=== PATIENT | male | born 1980 | race Caucasian/White ===

== ENCOUNTER 2019-10-10 00:35 | Emergency (ER) | payer OTHER ==
--- NOTE | 2019-10-10 00:46 | PDOC ---
History of Present Illness - General Chief Complaint: Chest Pain Stated Complaint: chest tightness Time Seen by Provider: 10/10/19 00:45 - History of Present Illness Initial Comments: HPI: 39yo M with PMH of anxiety and substance use (opioids, last used three years ago ) brought in by EMS for episode of lightheadedness and palpitations. Patient reports that about a half hour prior to arrival, he went to the store and was walking home when he felt sudden-onset lightheadedness such that he felt like he might almost pass out. He felt his heart racing and went into the store to ask someone to call [employer]. As he was in the ambulance headed to the hospital, he began to feel better and is now at his baseline. Denies thoughts of anxiety. Has had panic attacks previously, but this did not feel quite like one. No chest pain or shortness of breath. Has had normal po intake today. Denies fever or chills. ROS: Constitutional: no fever, no chills HEENT: no throat pain, no dysphagia Cardiovascular: no chest pain, +palpitations Respiratory: no cough, no shortness of breath Gastrointestinal: no abdominal pain, no nausea Genitourinary: no dysuria, no hematuria Musculoskeletal: no myalgia, no arthralgia Skin: no rash, no itching Neurologic: no headache, +lightheaded PE: General: Awake, alert, and fully oriented, in no acute distress Head: No signs of trauma Eyes: EOMI, sclera anicteric ENT: Moist mucus membranes Neck: Normal ROM, supple Lungs: Lungs clear, Normal breath sounds Cardio: Regular rhythm, S1 and S2 present Abdomen: Soft, nontender Extremities: Normal range of motion, Distal pulses present SKIN: Warm, Dry, normal turgor Neurologic: Cranial nerves II through XII intact. Normal speech, sensation, strength, coordination, and gait. ED Course/MDM: DDX including but not limited to metabolic derangement, anemia, ACS, vasovagal, pre-syncope Labs, EKG, CXR EKG: rate 80, QTc 456, NSR, incomplete RBBB (no previous EKGs available) 10/10/19 00:46 Patient signed out to Dr. Irby and night team. 10/10/19 01:26 Past History - Past Medical History Allergies/Adverse Reactions: Allergies Allergy/AdvReac Type Severity Reaction Status Date / Time No Known Allergies Allergy Verified 10/10/19 00:41 Home Medications: Ambulatory Orders NK [No Known Home Medication] 10/10/19 - Psycho Social/Smoking Cessation Hx Smoking History: Unknown if ever smoked Have you smoked in the past 12 months: No Information on smoking cessation initiated: No Hx Alcohol Use: Yes Drug/Substance Use Hx: Yes *Physical Exam - Vital Signs Last Vital Signs Temp Pulse Resp BP Pulse Ox 98.2 F 85 20 134/85 99 10/10/19 00:39 10/10/19 00:39 10/10/19 00:39 10/10/19 00:39 10/10/19 00:39 ED Treatment Course - LABORATORY CBC & Chemistry Diagram: 10/10/19 01:15 10/10/19 01:15 Discharge - Discharge Information Problems reviewed: Yes Clinical Impression/Diagnosis: Palpitations Condition: Stable Disposition: HOME - Follow up/Referral Referrals: Addison Jordan MD [Primary Care Provider] - - Patient Discharge Instructions Patient Printed Discharge Instructions: DI for Palpitations Additional Instructions: You came into the emergency department for lightheadedness and a racing heart. Blood work, EKG, and Xray were within normal limits. Eat and hydrate throughout the day to prevent dehydration and low blood sugar levels. Follow-up with you primary care physician this week to discuss this ED visit and to further evaluate your symptoms. Your care is not complete until you do so. Call and make an appointment. Immediate medical attention is required if: you pass out, have any chest pain, shortness of breath, severe headaches, changes in vision, focal numbness or weakness, any severe abdominal pain, any black tarry stool, or any new or concerning symptoms. If you think you are having an emergency, call for emergency medical services or present to the emergency department right away. - Post Discharge Activity Work/Back to School Note: Back to Work
[2019-10-10 01:11] VITALS: BP 134/85; PULSE 85; TEMP 98.2; BMI 23.7
--- NOTE | 2019-10-10 01:21 | PDOC ---
*Physical Exam - Vital Signs Last Vital Signs Temp Pulse Resp BP Pulse Ox 98.2 F 85 20 134/85 99 10/10/19 00:39 10/10/19 00:39 10/10/19 00:39 10/10/19 00:39 10/10/19 00:39 - Physical Exam 10/10/19 01:18 General Appearance: Nourished. No Apparent Distress HEENT: No Pharyngeal Erythema, Tonsillar Exudate, Tonsillar Erythema Neck: No Cervical Lymphadenopathy Respiratory/Chest: Lungs Clear, Normal Breath Sounds. No Crackles, Rales, Rhonchi, Wheezing Cardiovascular: Regular Rhythm, Regular Rate. No Murmur, Gallops, Rubs Gastrointestinal/Abdominal: Normal Bowel Sounds, Soft. No Guarding, Rebound, Tenderness Musculoskeletal: No CVA Tenderness Extremity: Normal Capillary Refill Integumentary: Normal Color, Dry, Warm Neurologic: Fully Oriented, Alert, Normal Mood/Affect, Normal Response, ED Treatment Course - LABORATORY CBC & Chemistry Diagram: 10/10/19 01:15 10/10/19 01:15 ED Progress Note - Progress Note Progress Note: 10/10/19 01:18 The patient is a 39 year old male with a history of anxiety and substance abuse( last use 3 years ago) who presents for evaluation of palpitations and lightheadedness. The patient reports that he was at the store when he began experiencing lightheadedness and palpations prompting his presentation to the ED for further evaluation. The patient states that he is currently asymptomatic and has returned to baseline. He is pending lab, cxr, ekg to evaluate further. Medical Decision Making - Medical Decision Making 10/10/19 03:14 CBC, cmp, troponin were unremarkable. Chest plain film does not demonstrate any acute process as preliminarily read by ED physician pending official radiology review. We are comfortable discharging the patient home in stable condition. Patient and family made aware of impression and plan, return precautions discussed including but not limited to worsening pain or symptoms, fevers, or signs of infection, chest pain, respiratory distress, inability to tolerate oral intake, dehydration, syncope, or neurologic changes. The patient is to follow up with PMD as recommended within 1 week, follow up information provided and the patient will call for an appointment. The patient is to take medications as instructed for duration of time and continue with supportive care , avoid triggers and precipitants. Patient is safe for outpatient follow-up. Discharge - Discharge Information Problems reviewed: Yes Clinical Impression/Diagnosis: Palpitations Condition: Stable Disposition: HOME - Follow up/Referral Referrals: Addison Jordan MD [Primary Care Provider] - - Patient Discharge Instructions Patient Printed Discharge Instructions: DI for Palpitations Additional Instructions: You came into the emergency department for lightheadedness and a racing heart. Blood work, EKG, and Xray were within normal limits. Eat and hydrate throughout the day to prevent dehydration and low blood sugar levels. Follow-up with you primary care physician this week to discuss this ED visit and to further evaluate your symptoms. Your care is not complete until you do so. Call and make an appointment. Immediate medical attention is required if: you pass out, have any chest pain, shortness of breath, severe headaches, changes in vision, focal numbness or weakness, any severe abdominal pain, any black tarry stool, or any new or concerning symptoms. If you think you are having an emergency, call for emergency medical services or present to the emergency department right away. - Post Discharge Activity Work/Back to School Note: Back to Work
[2019-10-10 01:32] LABS: BASO % 0.4 % (0-2.0); EOS % 0.9 % (0-4.5); HEMOGLOBIN 13.6 GM/dL (11.7-16.9); LYMPH % 29.6 % (8-40); MCH 31.5 pg (25.7-33.7); MCHC 33.9 g/dl (32.0-35.9); MEAN CELL VOLUME 92.7 fl (80-96); MEAN PLT VOLUME 7.9 fl (7.5-11.1); MONO % 7.7 % (3.8-10.2); NEUT % 61.4 % (42.8-82.8); PLATELET COUNT 201 K/MM3 (134-434); RBC 4.32 M/mm3 (4.00-5.60)
[2019-10-10 01:59] LABS: BILIRUBIN,TOTAL 0.4 mg/dL (0.2-1); BLOOD UREA NITROGEN 33.7 mg/dL (7-18); CALCIUM 8.6 mg/dL (8.5-10.1); CREATININE 0.7 mg/dL (0.55-1.3); POTASSIUM 3.8 mmol/L (3.5-5.1); TOT PROT 6.4 g/dl (6.4-8.2)
--- NOTE | 2019-10-10 02:23 | PDOC ---
Attending Attestation - Resident Resident Name: Rekha Perez - ED Attending Attestation I have performed the following: I have examined & evaluated the patient, The case was reviewed & discussed with the resident, I agree w/resident's findings & plan, Exceptions are as noted - HPI HPI: 10/10/19 02:17 39 M with h/o anxiety, substance abuse, presenting to ED with lightheadedness and palpitations. Pt states that he was walking home from a store when he suddenly felt lightheaded. Pt notes that he felt like he was going to faint but did not have LOC. Pt also reports feeling his heart racing. Denies CP/SOB. Pt has had panic attacks in the past. Pt denies F/C. Denies leg swelling. Denies any recent drug use. Pt states that his symptoms have improved since arriving to ED, and he currently has no complaints. - Physicial Exam PE: 10/10/19 02:22 "GENERAL: Awake, alert, and fully oriented, in no acute distress. HEAD: No signs of trauma EYES: PERRLA, EOMI, sclera anicteric, conjunctiva clear ENT: Auricles normal inspection, hearing grossly normal, nares patent, oropharynx clear without exudates. Moist mucosa NECK: Nontender, no stepoffs, Normal ROM, supple, no lymphadenopathy, JVD, or masses LUNGS: Breath sounds equal, clear to auscultation bilaterally. No wheezes, and no crackles HEART: Regular rate and rhythm, normal S1 and S2, no murmurs, rubs or gallops ABDOMEN: Soft, nontender, normoactive bowel sounds. No guarding, no rebound. No masses EXTREMITIES: Normal range of motion, no edema. No clubbing or cyanosis. No cords, erythema, or tenderness NEUROLOGICAL: Cranial nerves II through XII intact. 5/5 strength and sensation in all extremities, Normal speech, normal gait, normal cerebellar function SKIN: Warm, Dry, normal turgor, no rashes or lesions noted. - Medical Decision Making 10/10/19 02:23 39 M with palpitations and lightheadedness, now resolved. EKG with no arrhythmia. Vitals wnl. Pt with normal exam. - Labs - CXR 10/10/19 03:15 Labs wnl CXR clear on my read Pt reassessed - continues to be asymptomatic. Pt is well appearing, with normal vitals. Clinically stable for DC at this time. I discussed the physical exam findings, ancillary test results and final diagnoses with the patient. I answered all of the patient's questions. The patient was satisfied with the care received and felt comfortable with the discharge plan and treatment plan. The patient agrees to follow up with the primary care physician within 24-72 hours.
--- NOTE | 2019-10-11 10:42 | EKG ---
Test Reason : Blood Pressure : / mmHG Vent. Rate : 080 BPM Atrial Rate : 080 BPM P-R Int : 148 ms QRS Dur : 104 ms QT Int : 396 ms P-R-T Axes : 067 058 061 degrees QTc Int : 456 ms NORMAL SINUS RHYTHM INCOMPLETE RIGHT BUNDLE BRANCH BLOCK BORDERLINE ECG NO PREVIOUS ECGS AVAILABLE Confirmed by JHONY DARLING, SAIDA ([id number]) on 10/11/2019 10:41:51 AM Referred By: Confirmed By:SAIDA BOOKER MD
== END 2019-10-10 03:20 | disposition home or self-care (01) ==
LOC: JER 00:35
DX: R00.2 Palpitations (principal); F41.9 Anxiety disorder, unspecified; F19.10 Other psychoactive substance abuse, uncomplicated
CPT/HCPCS: 36415; 71046-TC-FY; 80053; 84484; 85025; 93005; 93010; 99284-25